=== PATIENT | male | born 1985 | race Caucasian/White ===

== ENCOUNTER 2020-06-14 02:57 | Emergency (ER) | payer OTHER | END 2020-06-14 03:47 | disposition home or self-care (01) | LOC: ERS 02:57 | DX: S43.005A Unspecified dislocation of left shoulder joint, initial encounter (principal); X50.1XXA Overexertion from prolonged static or awkward postures, initial encounter; Y93.F9 Activity, other caregiving | CPT/HCPCS: 23650 ==